=== PATIENT | female | born 2000 | race Caucasian/White ===

== ENCOUNTER 2018-04-11 14:27 | Emergency (ER) | payer MEDICAID ==
[~2018-04-11] VITALS: Ht 170.2 cm; Wt 55.9 kg
[2018-04-11] MEDS ORDERED: ONDANSETRON HCL 4 MG/2 ML VIAL IM ONE (17:15)
[2018-04-11 17:30] VITALS: BP 114/66
== END 2018-04-11 17:30 | disposition home or self-care (01) ==
LOC: EMS 15:02
DX: R11.2 Nausea with vomiting, unspecified (principal)
CPT/HCPCS: 81002; 81025; 96372; 99283; J2405